=== PATIENT | female | born 1990 | race Asian ===

== ENCOUNTER 2017-10-13 16:15 | Emergency (ER) | payer MEDICAID, OTHER ==
[~2017-10-13 16:15] MED LIST: CITA20 PO; DICY1TAB26 PO; LITH300C2 PO; METO10TA PO
[2017-10-13 16:18] VITALS: BP 134/83; PULSE 70; RESP 14; TEMP 97.5; O2SAT 100
--- NOTE | 2017-10-13 16:47 | PD ---
HPI Chief Complaint: Abdominal Pain Time Seen by Provider: 16:38 Travel History International Travel<30 days: No Contact w/Intl Traveler<30days: No Traveled to known affect area: No History of Present Illness HPI 27-year-old female presents to the emergency department via EMS with complaint of excruciating abdominal pain that onset after she ate at approximately 3 PM. 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 Reports vomiting. Denies diarrhea, dysuria. States her pain is consistent with episodes of her abdominal pain in the past. Pain is to the left epigastric region. Rates the pain 10/10. Describes it as burning, searing, tearing, cramping. Took ranitidine for symptom management. Says her pain is relieved with dicyclomine and if it is not relieved with dicyclomine it is relieved with Dilaudid. Aggravated after eating. Has followed up with a GI in the past and was told that nothing is wrong with her. Her GI doctor is Dr. Castillo in [place]. Allergies to raspberry. Denies other significant past medical history. No other modifying factors or associated signs and symptoms. PFSH Past Medical History Blood Disorders: No Bipolar Disorder: Yes Anxiety: Yes Depression: Yes Cancer: No Cardiovascular Problems: No Diminished Hearing: No Endocrine: No Gastrointestinal Disorders: Yes (pt had endoscopy, uncontrolled vomitting.) Genitourinary: No Immune Disorder: No Implanted Vascular Access Dvce: No Musculoskeletal: No Neurologic: No Psychiatric: No Reproductive: No Respiratory: No Immunizations Current: Yes Tetanus Vaccination: < 5 Years PNEUMOCCOCAL Vaccine (Year): 2 ?: Unknown : 1 Para: 0 Past Surgical History Abdominal Surgery: No Cardiac Surgery: No Ear Surgery: No Endocrine Surgery: No Eye Surgery: No Genitourinary Surgery: No Gynecologic Surgery: No Oral Surgery: No Thoracic Surgery: No Other Surgery: Yes (endoscopy) Social History Alcohol Use: Yes (mix drinks socially) Tobacco Use: Yes (1/2 ppd) Substance Use: Yes (marijuana and cocaine) Allergies-Medications (Allergen,Severity, Reaction): Coded Allergies: raspberry (Unverified Allergy, Severe, Hives, 04/02/17) Reported Meds & Prescriptions Reported Meds & Active Scripts Active Keflex (Cephalexin) 500 Mg Cap 500 Mg PO Q12H 7 Days Reglan (Metoclopramide HCl) 10 Mg Tab 10 Mg PO Q8H PRN NAUSEA AND VOMITING Bentyl (Dicyclomine HCl) 20 Mg Tab 20 Mg PO Q6H PRN FOR CRAMPS Reported Celexa 20 Mg Tab (Citalopram Hydrobromide) 20 Mg Tab 20 Mg PO DAILY Eskalith ([place] Carbonate) 300 Mg Cap 300 Mg PO TID Review of Systems Except as stated in HPI: all other systems reviewed are Neg Physical Exam Narrative GENERAL: Well-nourished, well-developed female patient, in no acute distress; afebrile SKIN: Warm and dry. HEAD: Atraumatic. Normocephalic. EYES: Pupils equal and round. No scleral icterus. No injection or drainage. ENT: Mucosa pink and moist. Airway patent. NECK: Trachea midline. CARDIOVASCULAR: Regular rate and rhythm. No murmur appreciated. RESPIRATORY: No accessory muscle use. Clear to auscultation. Breath sounds equal bilaterally. GASTROINTESTINAL: Abdomen soft, tenderness on palpation to epigastric, nondistended. Hepatic and splenic margins not palpable. Bowel sounds are active 4 quadrants. Nonrigid. No rebound tenderness. No guarding. BACK: No CVA tenderness. MUSCULOSKELETAL: No obvious deformities. No clubbing. No cyanosis. No edema. NEUROLOGICAL: Awake and alert. Oriented 3. No obvious cranial nerve deficits. Motor grossly within normal limits. Normal speech. PSYCHIATRIC: Appropriate mood and affect; insight and judgment normal. Data Data Orders Orders Dicyclomine Inj (Bentyl Inj) (10/13/17 17:00) Ondansetron Inj (Zofran Inj) (10/13/17 17:00) Basic Metabolic Panel (Bmp) (10/13/17 16:56) Complete Blood Count With Diff (10/13/17 16:56) Lipase (10/13/17 16:56) Urinalysis - C+S If Indicated (10/13/17 16:56) Sodium Chlor 0.9% 1000 Ml Inj (Ns 1000 M (10/13/17 16:56) Sodium Chloride 0.9% Flush (Ns Flush) (10/13/17 17:00) Ketorolac Inj (Toradol Inj) (10/13/17 17:00) Ed Urine Pregnancytest Poc (10/13/17 16:56) Psych Screen (10/13/17 17:38) Urine Culture (10/13/17 17:45) Ct Abd/Pel W Iv Contrast(Rout) (10/13/17 18:15) Ceftriaxone Inj (Rocephin Inj) (10/13/17 18:30) Iohexol 350 Inj (Omnipaque 350 Inj) (10/13/17 18:50) Labs Laboratory Tests Test 10/13/17 17:10 10/13/17 17:45 White Blood Count 17.3 TH/MM3 Red Blood Count 4.39 MIL/MM3 Hemoglobin 12.7 GM/DL Hematocrit 37.9 % Mean Corpuscular Volume 86.3 FL Mean Corpuscular Hemoglobin 28.9 PG Mean Corpuscular Hemoglobin Concent 33.5 % Red Cell Distribution Width 13.6 % Platelet Count 290 TH/MM3 Mean Platelet Volume 7.3 FL Neutrophils (%) (Auto) 89.4 % Lymphocytes (%) (Auto) 6.7 % Monocytes (%) (Auto) 3.1 % Eosinophils (%) (Auto) 0.7 % Basophils (%) (Auto) 0.1 % Neutrophils # (Auto) 15.5 TH/MM3 Lymphocytes # (Auto) 1.2 TH/MM3 Monocytes # (Auto) 0.5 TH/MM3 Eosinophils # (Auto) 0.1 TH/MM3 Basophils # (Auto) 0.0 TH/MM3 CBC Comment DIFF FINAL Differential Comment Blood Urea Nitrogen 14 MG/DL Creatinine 0.81 MG/DL Random Glucose 128 MG/DL Calcium Level 8.7 MG/DL Sodium Level 138 MEQ/L Potassium Level 3.5 MEQ/L Chloride Level 106 MEQ/L Carbon Dioxide Level 18.9 MEQ/L Anion Gap 13 MEQ/L Estimat Glomerular Filtration Rate 85 ML/MIN Lipase 81 U/L Urine Color LIGHT-YELLOW Urine Turbidity HAZY Urine pH 7.5 Urine Specific [place] 1.013 Urine Protein NEG mg/dL Urine Glucose (UA) NEG mg/dL Urine Ketones 80 mg/dL Urine Occult Blood SMALL Urine Nitrite NEG Urine Bilirubin NEG Urine Urobilinogen LESS THAN 2.0 MG/DL Urine Leukocyte Esterase LARGE Urine RBC 2 /hpf Urine WBC 11 /hpf Urine Squamous Epithelial Cells 9 /hpf Urine Bacteria RARE /hpf Urine Mucus FEW /lpf Microscopic Urinalysis Comment CULTURE INDICATED MDM Medical Decision Making Medical Screen Exam Complete: Yes Emergency Medical Condition: Yes Medical Record Reviewed: Yes Differential Diagnosis Vomiting, UTI, pyelonephritis, gastritis, gastroenteritis, functional abdominal pain syndrome Narrative Course 27-year-old female arrives via EMS with severe abdominal pain and vomiting. Patient states she has history of functional abdominal pain syndrome and she gets excruciating abdominal pain every 6 months for the past 7 years. Was given Zofran prior to arrival. Has left upper epigastric pain on physical exam. CBC, BMP, lipase, urinalysis, UPT, Bentyl, Toradol ordered. I discussed the patient with my attending physician, Dr. Fernandez, and she recommends imaging if WBC count is elevated. 1737: Patient wants to see psychiatrist. She has history of self cutting and loss of cut 2 weeks ago. She states she does it because it releases endorphins. She denies suicidal ideations. 1815: WBC 17.3, otherwise CBC unremarkable. BMP unremarkable. Lipase 81. Urinalysis with signs of infection. Urine culture pending. Rocephin 1gm ordered. CT abdomen/pelvis ordered. 1899: Report given to OLIVIA Dillon at change of shift. See her note for final patient disposition. Diagnosis Primary Impression: UTI (urinary tract infection) Qualified Codes: N39.0 - Urinary tract infection, site not specified; R31.9 - Hematuria, unspecified Med/Other Pt SpecificInfo: Prescription(s) given Scripts Cephalexin (Keflex) 500 Mg Cap 500 MG PO Q12H for Infection for 7 Days, #14 CAP 0 Refills Prov: Rhonda Chávez 10/13/17 Rhonda Chávez Oct 13, 2017 16:47
[2017-10-13] MEDS ORDERED: SODIUM CHLOR 0.9% 1000 ML INJ 1,000 ML IV SCH (16:56)
[2017-10-13] MEDS ORDERED: KETOROLAC TROMETHAMINE 30 MG/ML (IVP) VIAL IVP ONE (17:00)
[2017-10-13] MEDS ORDERED: DICYCLOMINE HCL 20 MG/2 ML VIAL IM ONE (17:00)
[2017-10-13] MEDS ORDERED: SODIUM CHLORIDE 0.9% FLUSH 10 ML FLUSH IV FLUSH PRN (17:00)
[2017-10-13] MEDS ORDERED: ONDANSETRON HCL 4 MG/2 ML VIAL IV PUSH ONE (17:00)
[2017-10-13 17:23] LABS: AUTOMATED NEUTROPHIL # 15.5 TH/MM3 (1.8-7.7); BASOPHIL % 0.1 % (0.0-2.0); EOSINOPHIL # 0.1 TH/MM3 (0-0.4); EOSINOPHIL % 0.7 % (0.0-4.0); HEMATOCRIT 37.9 % (35.0-46.0); HEMOGLOBIN 12.7 GM/DL (11.6-15.3); LYMPH % 6.7 % (9.0-44.0); LYMPHOCYTE # 1.2 TH/MM3 (1.0-4.8); MEAN CELL VOLUME 86.3 FL (80.0-100.0); MEAN CORPUSCULAR HEMOGLOBIN 28.9 PG (27.0-34.0); MEAN CORPUSCULAR HGB CONC 33.5 % (32.0-36.0); MEAN PLATELET VOLUME 7.3 FL (7.0-11.0); MONO % 3.1 % (0.0-8.0); MONOCYTE # 0.5 TH/MM3 (0-0.9); NEUT % 89.4 % (16.0-70.0); PLATELET COUNT 290 TH/MM3 (150-450); RED BLOOD COUNT 4.39 MIL/MM3 (4.00-5.30); RED CELL DISTRIBUTION WIDTH 13.6 % (11.6-17.2); WHITE BLOOD COUNT 17.3 TH/MM3 (4.0-11.0)
[2017-10-13 17:47] LABS: BICARBONATE 18.9 MEQ/L (21.0-32.0); CALCIUM 8.7 MG/DL (8.5-10.1); CREATININE 0.81 MG/DL (0.50-1.00)
[2017-10-13 18:15] LABS: BACTERIA, URINE RARE /hpf; BILIRUBIN, URINE NEG (NEG); BLOOD, URINE SMALL (NEG); GLUCOSE,URINE NEG (NEG); KETONE, URINE 80 mg/dL (NEG); MUCUS URINE FEW /lpf (OCC); NITRITE,URINE NEG (NEG); PH, URINE 7.5 (5.0-8.5); SQUAMOUS EPITHELIAL CELL URINE 9 /hpf (0-5); URINE COLOR LIGHT-YELLOW (YELLW/STRAW); URINE LEUKOCYTE ESTERASE LARGE (NEG)
[2017-10-13] MEDS ORDERED: CEPH-460 PO (18:20)
[2017-10-13] MEDS ORDERED: cefTRIAXone INJ 1,000 MG in SODIUM CHLORIDE 0.9% INJ 100 ML IV ONE (18:30)
[2017-10-13] MEDS ORDERED: IOHEXOL 350 MG/ML 10 ML VIAL (for RAD DIAG) IVCONTRAST ONE (18:50)
--- NOTE | 2017-10-13 19:01 | RADRPT ---
EXAM DATE/TIME: 10/13/2017 18:46 [facility] COMPARISON: No previous studies available for comparison. INDICATIONS : Diffuse abdomen pain and vomiting. IV CONTRAST: 70 cc Omnipaque 350 (iohexol) IV ORAL CONTRAST: No oral contrast ingested. RADIATION DOSE: 4.62 CTDIvol (mGy) MEDICAL HISTORY : None SURGICAL HISTORY : None. ENCOUNTER: Initial ACUITY: 1 day PAIN SCALE: 7/10 LOCATION: Bilateral abdomen TECHNIQUE: Volumetric scanning of the abdomen and pelvis was performed. Using automated exposure control and ad justment of the mA and/or kV according to patient size, radiation dose was kept as low as reasonably achievable to obtain optimal diagnostic quality images. DICOM format image data is available electro nically for review and comparison. FINDINGS: LOWER LUNGS: The visualized lower lungs are clear. LIVER: Homogeneous density without lesion. There is no dilation of the biliary tree. No calcified gallston es. SPLEEN: Normal size without lesion. PANCREAS: Within normal limits. KIDNEYS: Normal in size and shape. There is no mass, stone or hydronephrosis. ADRENAL GLANDS: Within normal limits. VASCULAR: There is no aortic aneurysm. BOWEL/MESENTERY: The stomach, small bowel, and colon demonstrate no acute abnormality. There is no free intraperitone al air or fluid. ABDOMINAL WALL: Within normal limits. RETROPERITONEUM: There is no lymphadenopathy. BLADDER: No wall thickening or mass. REPRODUCTIVE: Within normal limits. INGUINAL: There is no lymphadenopathy or hernia. MUSCULOSKELETAL: Within normal limits for patient age. CONCLUSION: 1. No acute findings in abdomen and pelvic CT. Specifically no obstruction or free fluid. Appendix no rmal. Curtis Lyn MD on October 13, 2017 at 18:55 Board Certified Radiologist. This report was verified electronically.
[2017-10-13 20:16] VITALS: BP 142/69; PULSE 57; RESP 20; TEMP 98.2; O2SAT 100
--- NOTE | 2017-10-13 21:09 | PD ---
Physical Exam Date Seen by Provider: Oct 13, 2017 Time Seen by Provider: 21:07 Narrative For full history and physical examination please see previous providers notes. I assumed care of this patient change his shift, at that time CT scan of the abdomen and pelvis was pending. Data Data Last Documented VS Vital Signs Date Time Temp Pulse Resp B/P (MAP) Pulse Ox O2 Delivery O2 Flow Rate FiO2 10/13/17 20:16 98.2 57 20 142/69 (93) 100 Room Air Orders Orders Dicyclomine Inj (Bentyl Inj) (10/13/17 17:00) Ondansetron Inj (Zofran Inj) (10/13/17 17:00) Basic Metabolic Panel (Bmp) (10/13/17 16:56) Complete Blood Count With Diff (10/13/17 16:56) Lipase (10/13/17 16:56) Urinalysis - C+S If Indicated (10/13/17 16:56) Sodium Chlor 0.9% 1000 Ml Inj (Ns 1000 M (10/13/17 16:56) Sodium Chloride 0.9% Flush (Ns Flush) (10/13/17 17:00) Ketorolac Inj (Toradol Inj) (10/13/17 17:00) Ed Urine Pregnancytest Poc (10/13/17 16:56) Psych Screen (10/13/17 17:38) Urine Culture (10/13/17 17:45) Ct Abd/Pel W Iv Contrast(Rout) (10/13/17 18:15) Ceftriaxone Inj (Rocephin Inj) (10/13/17 18:30) Iohexol 350 Inj (Omnipaque 350 Inj) (10/13/17 18:50) Pantoprazole Inj (Protonix Inj) (10/13/17 21:15) Diphenhydramine Inj (Benadryl Inj) (10/13/17 21:15) Prochlorperazine Inj (Compazine Inj) (10/13/17 21:15) Sodium Chlor 0.9% 1000 Ml Inj (Ns 1000 M (10/13/17 21:15) Labs Laboratory Tests Test 10/13/17 17:10 10/13/17 17:45 White Blood Count 17.3 TH/MM3 Red Blood Count 4.39 MIL/MM3 Hemoglobin 12.7 GM/DL Hematocrit 37.9 % Mean Corpuscular Volume 86.3 FL Mean Corpuscular Hemoglobin 28.9 PG Mean Corpuscular Hemoglobin Concent 33.5 % Red Cell Distribution Width 13.6 % Platelet Count 290 TH/MM3 Mean Platelet Volume 7.3 FL Neutrophils (%) (Auto) 89.4 % Lymphocytes (%) (Auto) 6.7 % Monocytes (%) (Auto) 3.1 % Eosinophils (%) (Auto) 0.7 % Basophils (%) (Auto) 0.1 % Neutrophils # (Auto) 15.5 TH/MM3 Lymphocytes # (Auto) 1.2 TH/MM3 Monocytes # (Auto) 0.5 TH/MM3 Eosinophils # (Auto) 0.1 TH/MM3 Basophils # (Auto) 0.0 TH/MM3 CBC Comment DIFF FINAL Differential Comment Blood Urea Nitrogen 14 MG/DL Creatinine 0.81 MG/DL Random Glucose 128 MG/DL Calcium Level 8.7 MG/DL Sodium Level 138 MEQ/L Potassium Level 3.5 MEQ/L Chloride Level 106 MEQ/L Carbon Dioxide Level 18.9 MEQ/L Anion Gap 13 MEQ/L Estimat Glomerular Filtration Rate 85 ML/MIN Lipase 81 U/L Urine Color LIGHT-YELLOW Urine Turbidity HAZY Urine pH 7.5 Urine Specific [place] 1.013 Urine Protein NEG mg/dL Urine Glucose (UA) NEG mg/dL Urine Ketones 80 mg/dL Urine Occult Blood SMALL Urine Nitrite NEG Urine Bilirubin NEG Urine Urobilinogen LESS THAN 2.0 MG/DL Urine Leukocyte Esterase LARGE Urine RBC 2 /hpf Urine WBC 11 /hpf Urine Squamous Epithelial Cells 9 /hpf Urine Bacteria RARE /hpf Urine Mucus FEW /lpf Microscopic Urinalysis Comment CULTURE INDICATED MDM Medical Record Reviewed: Yes Supervised Visit with ORTEGA: No Interpretation(s) Laboratory Tests Test 10/13/17 17:10 10/13/17 17:45 White Blood Count 17.3 TH/MM3 Red Blood Count 4.39 MIL/MM3 Hemoglobin 12.7 GM/DL Hematocrit 37.9 % Mean Corpuscular Volume 86.3 FL Mean Corpuscular Hemoglobin 28.9 PG Mean Corpuscular Hemoglobin Concent 33.5 % Red Cell Distribution Width 13.6 % Platelet Count 290 TH/MM3 Mean Platelet Volume 7.3 FL Neutrophils (%) (Auto) 89.4 % Lymphocytes (%) (Auto) 6.7 % Monocytes (%) (Auto) 3.1 % Eosinophils (%) (Auto) 0.7 % Basophils (%) (Auto) 0.1 % Neutrophils # (Auto) 15.5 TH/MM3 Lymphocytes # (Auto) 1.2 TH/MM3 Monocytes # (Auto) 0.5 TH/MM3 Eosinophils # (Auto) 0.1 TH/MM3 Basophils # (Auto) 0.0 TH/MM3 CBC Comment DIFF FINAL Differential Comment Blood Urea Nitrogen 14 MG/DL Creatinine 0.81 MG/DL Random Glucose 128 MG/DL Calcium Level 8.7 MG/DL Sodium Level 138 MEQ/L Potassium Level 3.5 MEQ/L Chloride Level 106 MEQ/L Carbon Dioxide Level 18.9 MEQ/L Anion Gap 13 MEQ/L Estimat Glomerular Filtration Rate 85 ML/MIN Lipase 81 U/L Urine Color LIGHT-YELLOW Urine Turbidity HAZY Urine pH 7.5 Urine Specific [place] 1.013 Urine Protein NEG mg/dL Urine Glucose (UA) NEG mg/dL Urine Ketones 80 mg/dL Urine Occult Blood SMALL Urine Nitrite NEG Urine Bilirubin NEG Urine Urobilinogen LESS THAN 2.0 MG/DL Urine Leukocyte Esterase LARGE Urine RBC 2 /hpf Urine WBC 11 /hpf Urine Squamous Epithelial Cells 9 /hpf Urine Bacteria RARE /hpf Urine Mucus FEW /lpf Microscopic Urinalysis Comment CULTURE INDICATED Vital Signs Date Time Temp Pulse Resp B/P (MAP) Pulse Ox O2 Delivery O2 Flow Rate FiO2 10/13/17 20:16 98.2 57 20 142/69 (93) 100 Room Air Differential Diagnosis Gastritis versus gastroenteritis versus appendicitis versus cholecystitis versus Narrative Course Patient is a 27-year-old female presented to emergency department for evaluation of epigastric abdominal pain. Pain started at 3 PM this afternoon after she was eating. Additionally patient requested to speak with a psychiatrist, she denies any suicidal or homicidal ideations. She reports cutting, drug use. Patient's vital signs are stable. Labs reviewed, white blood cell count 17.3, urinalysis is consistent with a urinary tract infection. Patient was given 1 g of Rocephin IV by previous provider as well as 1 L of IV fluids and antiemetics. CT scan of the abdomen and pelvis shows no acute findings specifically no obstruction or free fluid. The appendix is normal. 2100-patient was reassessed, she reported that she is continuing to have abdominal pain and has been vomiting or making herself vomit per RN report. Medications ordered. Will reassess. Patient reports feeling better after medication administration. Patient will be prescribed Protonix and Carafate. She is encouraged to follow-up with a GI specialist. Patient is medically clear for psychiatric evaluation. Patient was seen and evaluated by the psychiatric nurse screener who after screening patient provided her with information regarding [facility] as outpatient. Patient is agreeable. Again patient has no suicidal homicidal ideations. She had n not been feeling suicidal on arrival as well. Patient reported that she cuts to release endorphins and not to harm herself. Diagnosis Primary Impression: UTI (urinary tract infection) Qualified Codes: N39.0 - Urinary tract infection, site not specified; R31.9 - Hematuria, unspecified Additional Impressions: Gastritis Qualified Codes: K29.70 - Gastritis, unspecified, without bleeding Encounter for medical screening examination Referrals: Power System Electrical Engineer 1 week [facility] 1 day Patient Instructions: Diet for Stomach Ulcers and Gastritis (ED), Gastritis (ED ), General Instructions, Urinary Tract Infection in Women (GEN) Additional Instruction: Follow-up with print developer Complete full course of antibiotics as prescribed Return to emergency department for any new or worsening symptoms Med/Other Pt SpecificInfo: Prescription(s) given Scripts Pantoprazole (Protonix) 40 Mg Tab 40 MG PO DAILY for Reflux, #30 TAB 0 Refills Prov: Nickie Bray 10/13/17 Sucralfate Liq (Carafate Liq) 1 Gm/10 Ml Susp 1 GM PO QID for Duodenal ulcer for 10 Days, ML 0 Refills on empty stomach Prov: Nickie Bray 10/13/17 Disposition: 01 DISCHARGE HOME Condition: Stable Nickie Bray Oct 13, 2017 21:09
[2017-10-13] MEDS ORDERED: diphenhydrAMINE HCL 50 MG/ML VIAL IV PUSH ONE (21:15)
[2017-10-13] MEDS ORDERED: PROCHLORPERAZINE INJ 10 MG/2 ML VIAL IV PUSH ONE (21:15)
[2017-10-13] MEDS ORDERED: PANTOPRAZOLE SODIUM 40 MG VIAL IV PUSH ONE (21:15)
[2017-10-13] MEDS ORDERED: SODIUM CHLOR 0.9% 1000 ML INJ 1,000 ML IV ONE (21:15)
[2017-10-13] MEDS ORDERED: CARA1SUS3 PO (21:59)
[2017-10-13] MEDS ORDERED: PROT40TA PO (21:59)
== END 2017-10-13 23:58 | disposition home or self-care (01) ==
LOC: NEPD 16:15
DX: N39.0 Urinary tract infection, site not specified (principal); R31.9 Hematuria, unspecified; F31.9 Bipolar disorder, unspecified; F41.9 Anxiety disorder, unspecified; F17.200 Nicotine dependence, unspecified, uncomplicated; F12.90 Cannabis use, unspecified, uncomplicated; F14.90 Cocaine use, unspecified, uncomplicated; Z91.5 Personal history of self-harm
CPT/HCPCS: 74177; 80048; 81001; 83690; 84703; 85025; 87086; 96361; 96365; 96372; 96375; 99284; C9113; J0500; J0696; J0780; J1200; J1885; J2405; J7030; Q9967

== ENCOUNTER 2017-11-19 20:00 | Emergency (ER) | payer OTHER ==
[~2017-11-19] VITALS: Ht 149.9 cm; Wt 46.9 kg
[~2017-11-19 20:00] MED LIST changes: +CARA1SUS3 PO; -CITA20 PO; -DICY1TAB26 PO; -LITH300C2 PO; -METO10TA PO; +PROT40TA PO
[2017-11-19 20:11] VITALS: PULSE 76; RESP 18; TEMP 98.1; O2SAT 100
[2017-11-19] MEDS ORDERED: SODIUM CHLOR 0.9% 1000 ML INJ 1,000 ML IV SCH (20:24)
[2017-11-19] MEDS ORDERED: PANTOPRAZOLE SODIUM 40 MG VIAL IVP ONE (20:30)
[2017-11-19] MEDS ORDERED: SODIUM CHLORIDE 0.9% FLUSH 10 ML FLUSH IV FLUSH PRN (20:30)
[2017-11-19] MEDS ORDERED: ONDANSETRON HCL 4 MG/2 ML VIAL IVP ONE (20:30)
--- NOTE | 2017-11-19 20:33 | PD ---
HPI Chief Complaint: Abdominal Pain Time Seen by Provider: 20:17 Travel History International Travel<30 days: No Contact w/Intl Traveler<30days: No Traveled to known affect area: No History of Present Illness HPI 27-year-old female complains of abdominal pain, nausea vomiting. Patient states that she has history of recurrent abdominal pain with nausea vomiting in the past. Patient was seen by wireless sales manager in the past and had workup done including endoscopy without clear etiology of recurrent abdominal pain and nausea vomiting. Patient is on Protonix daily. Patient states that she started having severe abdominal cramping with nausea vomiting after eating out tonight. Patient states the pain is severe cramping pain localized around epigastric area. Patient denies any pain radiation. Patient denies any dysuria or frequency. Patient denies any vaginal discharge or bleeding. 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 PFSH Past Medical History Blood Disorders: No Bipolar Disorder: Yes Anxiety: Yes Depression: Yes Cancer: No Cardiovascular Problems: No Diminished Hearing: No Endocrine: No Gastrointestinal Disorders: Yes (pt had endoscopy, uncontrolled vomitting.) Genitourinary: No Immune Disorder: No Implanted Vascular Access Dvce: No Musculoskeletal: No Neurologic: No Psychiatric: No Reproductive: No Respiratory: No Immunizations Current: Yes PNEUMOCCOCAL Vaccine (Year): 2 ?: Unknown LMP: 10/02/17 : 1 Para: 0 Past Surgical History Abdominal Surgery: No Cardiac Surgery: No Ear Surgery: No Endocrine Surgery: No Eye Surgery: No Genitourinary Surgery: No Gynecologic Surgery: No Oral Surgery: No Thoracic Surgery: No Other Surgery: Yes (endoscopy) Social History Alcohol Use: Yes (mix drinks socially) Tobacco Use: Yes (1/2 ppd) Allergies-Medications (Allergen,Severity, Reaction): Coded Allergies: raspberry (Unverified Allergy, Severe, Hives, 11/19/17) Reported Meds & Prescriptions Reported Meds & Active Scripts Active Carafate (Sucralfate) 1 Gram Tab 1 Gm PO QID On empty stomach Bentyl (Dicyclomine HCl) 10 Mg Cap 10 Mg PO TID PRN Zofran Odt (Ondansetron Odt) 4 Mg Tab 4 Mg SL Q6HR PRN Reglan (Metoclopramide HCl) 10 Mg Tab 10 Mg PO TIDAC Protonix (Pantoprazole Sodium) 40 Mg Tab 40 Mg PO DAILY Carafate Liq (Sucralfate) 1 Gm/10 Ml Susp 1 Gm PO QID 10 Days on empty stomach Review of Systems General / Constitutional: No: Fever Eyes: No: Visual changes HENT: No: Headaches Cardiovascular: No: Chest Pain or Discomfort Respiratory: No: Shortness of Breath Gastrointestinal: Positive: Nausea, Vomiting, Abdominal Pain Genitourinary: No: Dysuria Musculoskeletal: No: Pain Skin: No Rash Neurologic: No: Weakness Psychiatric: No: Depression Endocrine: No: Polydipsia Hematologic/Lymphatic: No: Easy Bruising Physical Exam Narrative GENERAL: Well-nourished, well-developed patient. SKIN: Focused skin assessment warm/dry. HEAD: Normocephalic. EYES: No scleral icterus. No injection or drainage. NECK: Supple, trachea midline. No JVD or lymphadenopathy. CARDIOVASCULAR: Regular rate and rhythm without murmurs, gallops, or rubs. RESPIRATORY: Breath sounds equal bilaterally. No accessory muscle use. GASTROINTESTINAL: Abdomen soft, nondistended. Patient has moderate tenderness on palpation epigastric area. No rebound tenderness. No mass. MUSCULOSKELETAL: No cyanosis, or edema. BACK: Nontender without obvious deformity. No CVA tenderness. Neurologic exam normal. Data Data Last Documented VS Vital Signs Date Time Temp Pulse Resp B/P (MAP) Pulse Ox O2 Delivery O2 Flow Rate FiO2 11/20/17 01:09 53 18 121/59 (79) 100 Room Air 11/19/17 20:11 98.1 Orders Orders Beta Hcg (Quant/Titer) (11/19/17 20:24) Complete Blood Count With Diff (11/19/17 20:24) Comprehensive Metabolic Panel (11/19/17 20:24) Lipase (11/19/17 20:24) Urinalysis - C+S If Indicated (11/19/17 20:24) Iv Access Insert/Monitor (11/19/17 20:24) Ecg Monitoring (11/19/17 20:24) Oximetry (11/19/17 20:24) Ondansetron Inj (Zofran Inj) (11/19/17 20:30) Pantoprazole Inj (Protonix Inj) (11/19/17 20:30) Sodium Chlor 0.9% 1000 Ml Inj (Ns 1000 M (11/19/17 20:24) Sodium Chloride 0.9% Flush (Ns Flush) (11/19/17 20:30) Dicyclomine Inj (Bentyl Inj) (11/19/17 21:30) Metoclopramide Inj (Reglan Inj) (11/19/17 21:30) Diphenhydramine Inj (Benadryl Inj) (11/19/17 21:30) Urine Culture (11/19/17 22:20) Diphenhydramine Inj (Benadryl Inj) (11/19/17 23:00) Ceftriaxone Inj (Rocephin Inj) (11/20/17 00:15) Ed Discharge Order (11/20/17 00:34) Promethazine Inj (Phenergan Inj) (11/20/17 01:15) Labs Laboratory Tests Test 11/19/17 20:20 11/19/17 22:20 White Blood Count 11.3 TH/MM3 Red Blood Count 5.04 MIL/MM3 Hemoglobin 14.1 GM/DL Hematocrit 42.5 % Mean Corpuscular Volume 84.3 FL Mean Corpuscular Hemoglobin 27.9 PG Mean Corpuscular Hemoglobin Concent 33.1 % Red Cell Distribution Width 13.9 % Platelet Count 302 TH/MM3 Mean Platelet Volume 8.2 FL Neutrophils (%) (Auto) 58.7 % Lymphocytes (%) (Auto) 25.5 % Monocytes (%) (Auto) 9.3 % Eosinophils (%) (Auto) 2.9 % Basophils (%) (Auto) 3.6 % Neutrophils # (Auto) 6.6 TH/MM3 Lymphocytes # (Auto) 2.9 TH/MM3 Monocytes # (Auto) 1.1 TH/MM3 Eosinophils # (Auto) 0.3 TH/MM3 Basophils # (Auto) 0.4 TH/MM3 CBC Comment DIFF FINAL Differential Comment Blood Urea Nitrogen 7 MG/DL Creatinine 0.78 MG/DL Random Glucose 74 MG/DL Total Protein 8.2 GM/DL Albumin 4.0 GM/DL Calcium Level 9.0 MG/DL Alkaline Phosphatase 52 U/L Aspartate Amino Transf (AST/SGOT) 33 U/L Alanine Aminotransferase (ALT/SGPT) 19 U/L Total Bilirubin 0.5 MG/DL Sodium Level 138 MEQ/L Potassium Level 4.1 MEQ/L Chloride Level 106 MEQ/L Carbon Dioxide Level 23.2 MEQ/L Anion Gap 9 MEQ/L Estimat Glomerular Filtration Rate 89 ML/MIN Lipase 141 U/L Human Chorionic Gonadotropin, Quant LESS THAN 1 MIU/ML Urine Collection Type CLEAN CATCH Urine Color YELLOW Urine Turbidity SL CLOUDY Urine pH 6.5 Urine Specific [place] 1.020 Urine Protein NEG mg/dL Urine Glucose (UA) NEG mg/dL Urine Ketones 15 mg/dL Urine Occult Blood NEG Urine Nitrite POS Urine Bilirubin NEG Urine Urobilinogen 0.2 MG/DL Urine Leukocyte Esterase TRACE Urine WBC 6-8 /hpf Urine Squamous Epithelial Cells 0-5 /hpf Urine Bacteria OCC /hpf Urine Mucus FEW /lpf Microscopic Urinalysis Comment CULTURE INDICATED MDM Medical Decision Making Medical Screen Exam Complete: Yes Emergency Medical Condition: Yes Interpretation(s) 12:30 AM. CBC within normal limits. CMP within normal limits. Beta-hCG negative. UA positive a few WBC and few bacteria. Differential Diagnosis Differential diagnoses including gastritis, PUD, pancreatitis, cholecystitis, colitis, UTI, pyelonephritis, nephrolithiasis. Narrative Course 27-year-old female with abdominal pain, nausea vomiting. History of recurrent abdominal pain with nausea vomiting. Patient has been seen by wireless sales manager for that. Normal saline solution 1 L IV bolus. Protonix 40 mg IV. Zofran 4 mg IV. Morphine 2 mg IV. Rocephin 1 g IV given. Reglan 10 mg IV. Benadryl 50 mg IV. Phenergan 25 mg IM. Diagnosis Primary Impression: Cyclical vomiting with nausea Qualified Codes: G43.A0 - Cyclical vomiting, not intractable Additional Impressions: Abdominal pain Qualified Codes: R10.13 - Epigastric pain UTI (urinary tract infection) Qualified Codes: N30.00 - Acute cystitis without hematuria Patient Instructions: General Instructions Additional Instructions: Take medications as directed. Follow-up with personal physician and wireless sales manager. Return to persistent problem or worse. Med/Other Pt SpecificInfo: Prescription(s) given Scripts Sucralfate (Carafate) 1 Gram Tab 1 GM PO QID for Ulcer Prevention, #120 TAB 0 Refills On empty stomach Prov: Richard Remy MD 11/20/17 Dicyclomine (Bentyl) 10 Mg Cap 10 MG PO TID Y for Bowel Management, #21 CAP 0 Refills Prov: Richard Remy MD 11/20/17 Ondansetron Odt (Zofran Odt) 4 Mg Tab 4 MG SL Q6HR Y for Nausea/Vomiting, #20 TAB 0 Refills Prov: Richard Remy MD 11/20/17 Metoclopramide (Reglan) 10 Mg Tab 10 MG PO TIDAC, #30 TAB 0 Refills Prov: Richard Remy MD 11/20/17 Disposition: 01 DISCHARGE HOME Condition: Stable Richard Remy MD Nov 19, 2017 20:33
[2017-11-19 20:43] LABS: AUTOMATED NEUTROPHIL # 6.6 TH/MM3 (1.8-7.7); BASOPHIL # 0.4 TH/MM3 (0-0.2); BASOPHIL % 3.6 % (0.0-2.0); EOSINOPHIL # 0.3 TH/MM3 (0-0.4); EOSINOPHIL % 2.9 % (0.0-4.0); HEMATOCRIT 42.5 % (35.0-46.0); HEMOGLOBIN 14.1 GM/DL (11.6-15.3); LYMPH % 25.5 % (9.0-44.0); LYMPHOCYTE # 2.9 TH/MM3 (1.0-4.8); MEAN CELL VOLUME 84.3 FL (80.0-100.0); MEAN CORPUSCULAR HEMOGLOBIN 27.9 PG (27.0-34.0); MEAN CORPUSCULAR HGB CONC 33.1 % (32.0-36.0); MEAN PLATELET VOLUME 8.2 FL (7.0-11.0); MONO % 9.3 % (0.0-8.0); MONOCYTE # 1.1 TH/MM3 (0-0.9); NEUT % 58.7 % (16.0-70.0); PLATELET COUNT 302 TH/MM3 (150-450); RED BLOOD COUNT 5.04 MIL/MM3 (4.00-5.30); RED CELL DISTRIBUTION WIDTH 13.9 % (11.6-17.2); WHITE BLOOD COUNT 11.3 TH/MM3 (4.0-11.0)
[2017-11-19 20:55] LABS: CHLORIDE 106 MEQ/L (98-107); SODIUM (NA) 138 MEQ/L (136-145)
[2017-11-19 21:00] LABS: BICARBONATE 23.2 MEQ/L (21.0-32.0); BLOOD UREA NITROGEN 7 MG/DL (7-18); GLUCOSE,RANDOM 74 MG/DL (74-106)
[2017-11-19 21:03] LABS: ALT (GPT) 19 U/L (10-53); AST (GOT) 33 U/L (15-37); CREATININE 0.78 MG/DL (0.50-1.00); GLOMERULAR FILTRATION RATE 89 ML/MIN (>89)
[2017-11-19 21:04] LABS: TOTAL BILIRUBIN ADULT 0.5 MG/DL (0.2-1.0)
[2017-11-19 21:05] LABS: TOTAL PROTEIN 8.2 GM/DL (6.4-8.2)
[2017-11-19 21:06] LABS: ALKALINE PHOSPHATASE 52 U/L (45-117)
[2017-11-19] MEDS ORDERED: diphenhydrAMINE HCL 50 MG/ML VIAL IV PUSH ONE ×2 (21:30→23:00)
[2017-11-19] MEDS ORDERED: METOCLOPRAMIDE HCL 10 MG/2 ML VIAL IV PUSH ONE (21:30)
[2017-11-19] MEDS ORDERED: DICYCLOMINE HCL 20 MG/2 ML VIAL IM ONE (21:30)
[2017-11-19 21:50] VITALS: BP 114/65; PULSE 76
[2017-11-19 21:58] VITALS: BP 111/62; PULSE 69; RESP 18; O2SAT 100
[2017-11-19 22:40] LABS: BILIRUBIN, URINE NEG (NEG); BLOOD, URINE NEG (NEG); GLUCOSE,URINE NEG (NEG); KETONE, URINE 15 mg/dL (NEG); NITRITE,URINE POS (NEG); PH, URINE 6.5 (5.0-8.5); URINE COLOR YELLOW (YELLW/STRAW); URINE LEUKOCYTE ESTERASE TRACE (NEG)
[2017-11-19 22:50] LABS: MUCUS URINE FEW /lpf (OCC)
[2017-11-19 22:53] LABS: BACTERIA, URINE OCC /hpf; SQUAMOUS EPITHELIAL CELL URINE 0-5 /hpf (0-5)
[2017-11-20] MEDS ORDERED: REGL10TA5 PO (00:08)
[2017-11-20] MEDS ORDERED: ZOFR4TAB3 SL (00:08)
[2017-11-20] MEDS ORDERED: DICY10 PO (00:09)
[2017-11-20] MEDS ORDERED: cefTRIAXone INJ 1,000 MG in SODIUM CHLORIDE 0.9% INJ 100 ML IV ONE (00:15)
[2017-11-20 01:09] VITALS: BP 121/59; PULSE 53; RESP 18; O2SAT 100
[2017-11-20] MEDS ORDERED: CARA1TAB6 PO (01:12)
[2017-11-20] MEDS ORDERED: PROMETHAZINE INJ 25 MG/ML VIAL IM ONE (01:15)
== END 2017-11-20 03:57 | disposition home or self-care (01) ==
LOC: PHED 20:00
DX: R10.13 Epigastric pain (principal); N39.0 Urinary tract infection, site not specified; G43.A0 Cyclical vomiting, in migraine, not intractable; F31.9 Bipolar disorder, unspecified; F41.9 Anxiety disorder, unspecified; F17.200 Nicotine dependence, unspecified, uncomplicated; Z79.899 Other long term (current) drug therapy
CPT/HCPCS: 80053; 81001; 83690; 84702; 85025; 87086; 96361; 96365; 96372; 96375; 96376; 99284; C9113; J0500; J0696; J1200; J2405; J2550; J2765; J7030

== ENCOUNTER → 2017-12-24 | Outpatient (CLI) | payer OTHER ==
[~2017-12-24] MED LIST changes: +CARA1TAB6 PO; +DICY10 PO; +REGL10TA5 PO; +ZOFR4TAB3 SL
--- NOTE | 2017-12-24 17:03 | EKG ---
Date Performed: 12/24/2017 Time Performed: 14:39:19 PTAGE: 27 years EKG: Sinus rhythm WITH SHORT [place] INTERVAL POSSIBLE RIGHT VENTRICULAR CONDUCTION DELAY BORDERLINE ECG PREVIOUS TRACING : 09/07/2014 16.30 DOCTOR: Jarad Ely Interpretating Date/Time 12/24/2017 17:02:18
== END ==
LOC: HCAV 14:24
PROVIDERS: ATTEND Psychiatry & Neurology Child & Adolescent Psychiatry
DX: F43.12 Post-traumatic stress disorder, chronic (principal); F33.1 Major depressive disorder, recurrent, moderate; F39 Unspecified mood [affective] disorder; F41.1 Generalized anxiety disorder; R94.31 Abnormal electrocardiogram [ECG] [EKG]
CPT/HCPCS: 93005